=== PATIENT | male | born 1970 | race Asian ===

== ENCOUNTER 2020-10-05 08:16 | Day surgery (SDC) | payer OTHER, SELFPAY ==
[~2020-10-05] VITALS: Ht 160 cm; Wt 55.3 kg
[2020-10-05] MEDS ORDERED: LIDOCAINE 2% 100 MG/5 ML UJET TP ONE (11:41)
[2020-10-05] MEDS ORDERED: fentaNYL citrate 0.05 MG/ML VIAL ONE (11:41)
[2020-10-05] MEDS ORDERED: MIDAZOLAM 2 MG/2 ML VIAL ONE (11:41)
[2020-10-05] MEDS ORDERED: LIDOCAINE JELLY 2% 30 ML TUBE TP ONE (12:20)
[2020-10-05] MEDS ORDERED: MIDAZOLAM 2 MG/2 ML VIAL IVP ONE (12:20)
[2020-10-05] MEDS ORDERED: fentaNYL citrate 0.05 MG/ML VIAL IVP ONE (12:20)
== END 2020-10-05 13:30 | disposition home or self-care (01) ==
LOC: MDS 08:16 → MMU 08:16 → MDS 13:30
PROVIDERS: ATTEND Internal Medicine Gastroenterology
DX: Z12.11 Encounter for screening for malignant neoplasm of colon (principal); D12.2 Benign neoplasm of ascending colon; D12.3 Benign neoplasm of transverse colon; R94.39 Abnormal result of other cardiovascular function study; E78.5 Hyperlipidemia, unspecified; M10.9 Gout, unspecified; Z79.899 Other long term (current) drug therapy; Z20.822 Contact with and (suspected) exposure to COVID-19
CPT/HCPCS: 43239; 45385; J2250; J3010; J7030; U0003; 88305